=== PATIENT | female | born 1980 | race American Indian/Alaskan Native ===

== ENCOUNTER 2017-10-22 17:23 | Emergency (ER) | payer BC ==
[2017-10-22 17:23] VITALS: BMI 37.4
[2017-10-22 17:28] VITALS: PULSE 64; RESP 18; TEMP 98.5; O2SAT 98
--- NOTE | 2017-10-22 17:37 | ED PDOC ---
Arrival/HPI - General Chief Complaint: Upper Extremity Problem/Injury Time Seen by Provider: 10/22/17 17:31 Historian: Patient, Spouse - History of Present Illness Narrative History of Present Illness (Text): 10/22/17 17:37 This 37 yo female with pmh cervical slipped disc, presents to this ED c/o right shoulder pain x 7 days. Patient denies trauma, weakness, paresthesias, skin rash, neck pain, maldonado, or dizziness. Time/Duration: 1 week Quality: Aching Context: Home Past Medical History - Provider Review Nursing Documentation Reviewed: Yes - Tetanus Immunization Tetanus Immunization: Up to Date - Past Medical History Past Medical History: No Previous - Psychiatric Hx Depression: No Hx Emotional Abuse: No Hx Physical Abuse: No Hx Substance Use: No - Surgical History Hx Section: Yes - Suicidal Assessment Feels Threatened In Home Enviroment: No Family/Social History - Physician Review Nursing Documentation Reviewed: Yes Family/Social History: Other (noncontributory) Smoking Status: Light Smoker < 10 Cigarettes Daily Hx Alcohol Use: Yes Frequency of alcohol use: Socially Hx Substance Use: No Hx Substance Use Treatment: No Allergies/Home Meds Allergies/Adverse Reactions: Allergies No Known Allergies Allergy (Verified 10/22/17 17:27) Review of Systems - Review of Systems Constitutional: Normal. absent: Fatigue, Weight Change, Fevers, Night Sweats Eyes: Normal ENT: Normal Respiratory: Normal. absent: SOB, Cough, Sputum Cardiovascular: Normal. absent: Chest Pain, Palpitations Gastrointestinal: Normal. absent: Abdominal Pain, Nausea, Vomiting Genitourinary Female: Normal. absent: Dysuria, Frequency, Hematuria Musculoskeletal: Other (right shoulder pain) Skin: Normal Neurological: Normal Endocrine: Normal Hemo/Lymphatic: Normal Psychiatric: Normal Physical Exam Vital Signs Temp Pulse Resp BP Pulse Ox 10/22/17 17:25 98.5 F 64 18 123/78 98 10/22/17 17:23 98.5 F 64 18 123/78 98 Temperature: Afebrile Blood Pressure: Normal Pulse: Regular Respiratory Rate: Normal Appearance: Positive for: Well-Appearing, Non-Toxic, Comfortable Pain Distress: None Mental Status: Positive for: Alert and Oriented X 3 - Systems Exam Head: Present: Atraumatic, Normocephalic Pupils: Present: PERRL Extroacular Muscles: Present: EOMI Conjunctiva: Present: Normal Mouth: Present: Moist Mucous Membranes Neck: Present: Normal Range of Motion, Trachea Midline. No: Meningeal Signs, MIDLINE TENDERNESS, Paraspinal Tenderness, Lymphadenopathy Respiratory/Chest: Present: Clear to Auscultation, Good Air Exchange. No: Respiratory Distress, Accessory Muscle Use, Wheezes, Retracting, Rhonchi, Tender to Palpation Cardiovascular: Present: Regular Rate and Rhythm, Normal S1, S2. No: Murmurs Upper Extremity: Present: Normal Inspection, Normal ROM, NORMAL PULSES, Tenderness (mild tenderness right posterior shoulder), Neurovascularly Intact, Capillary Refill < 2s. No: Cyanosis, Edema Lower Extremity: Present: Normal Inspection, NORMAL PULSES, Normal ROM. No: Edema, CALF TENDERNESS Neurological: Present: GCS=15, CN II-XII Intact, Speech Normal, Motor Func Grossly Intact Skin: Present: Warm, Dry, Normal Color. No: Rashes Psychiatric: Present: Alert, Oriented x 3, Normal Insight, Normal Concentration Medical Decision Making ED Course and Treatment: 10/22/17 18:23 Re-evaluation. Patient feels better. Discussed results and plan with patient who expresses understanding. All questions answered and there is agreement with the plan to discharge home with instructions. Patient stable for discharge. Return if symptoms persist or worsen. Re-evaluation Time: 18:22 Reassessment Condition: Re-examined, Improved - RAD Interpretation Narrative RAD Interpretations (Text): 10/22/17 18:23 Shoulder x-rays: (+) calcific tendonitis. No Fx. or sublux. Radiology Orders: 10/22/17 17:42 SHOULDER RIGHT [RAD] Stat - Medication Orders Current Medication Orders: Discontinued Medications Diazepam (Valium) 5 mg PO ONCE ONE PRN Reason: Protocol Stop: 10/22/17 17:39 Last Admin: 10/22/17 18:05 Dose: 5 mg Ketorolac Tromethamine (Toradol) 30 mg IM STAT STA Stop: 10/22/17 17:39 Last Admin: 10/22/17 18:01 Dose: 30 mg PABLITO Pain Assessment Document 10/22/17 18:01 SRE (Rec: 10/22/17 18:05 SRE [id number]) Pain Reassessment Is this a pain reassessment? Yes Sleep Is patient sleeping during reassessment? No Presence of Pain Presence of Pain Yes Pain Scale Used Pain Scale Used Numeric Location Left, Right or Bilateral Right Pain Location Body Site Shoulder Description Description Intermittent IM Administration Charges Document 10/22/17 18:01 SRE (Rec: 10/22/17 18:05 SRE [id number]) Charges for Administration # of IM Administrations 1 Disposition/Present on Arrival - Present on Arrival Any Indicators Present on Arrival: No History of DVT/PE: No History of Uncontrolled Diabetes: No Urinary Catheter: No History of Decub. Ulcer: No History Surgical Site Infection Following: None - Disposition Have Diagnosis and Disposition been Completed?: Yes Diagnosis: Shoulder pain, right, Calcific tendonitis of right shoulder Disposition: HOME/ ROUTINE Disposition Time: 18:26 Patient Plan: Discharge Patient Problems: Current Active Problems Problem Status Onset Calcific tendonitis of right shoulder Acute Shoulder pain, right Acute Condition: GOOD Discharge Instructions (ExitCare): Calcific Tendinitis (ED) Additional Instructions: Call private doctor for follow up visit in 1-2 days. Take medication as instructed with food. return to emergency if symptoms worsen. Prescriptions: diaZEpam [Valium] 5 mg PO DAILY #6 tab Naproxen 500 mg PO BID PRN #14 tab PRN Reason: Pain, Severe (8-10) Referrals: Primary [employer] Brenda Req, [Primary Care Provider] - Follow up with primary [facility] [Outside] - Follow up with primary [facility] [Outside] - Follow up with primary Forms: [employer] (Greek), WORK NOTE
[2017-10-22 18:41] VITALS: BP 118/72
--- NOTE | 2017-10-23 08:13 | RAD ---
PROCEDURE: Radiographs of the Right Shoulder HISTORY: pain COMPARISON: No prior. FINDINGS: BONES: Normal. No fracture. JOINTS: Normal. Glenohumeral and acromioclavicular joints preserved. No osteoarthritis. SOFT TISSUES: Normal. OTHER FINDINGS: None. IMPRESSION: Normal radiographs of the right shoulder.
== END 2017-10-22 18:41 | disposition home or self-care (01) ==
LOC: ED 17:23
DX: M75.31 Calcific tendinitis of right shoulder (principal); F17.210 Nicotine dependence, cigarettes, uncomplicated; M25.511 Pain in right shoulder
CPT/HCPCS: 29240; 73030; 81025; 96372; 99284; J1885

== ENCOUNTER 2018-08-31 20:54 | Emergency (ER) | payer OTHER, BC ==
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
[2018-08-31 21:57] VITALS: BMI 36.5
[2018-08-31 23:35] VITALS: BP 122/82; PULSE 58; RESP 17; TEMP 98.2; O2SAT 100
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
== END 2018-08-31 23:35 | disposition home or self-care (01) ==
LOC: ED 20:54
DX: T14.8XXA Other injury of unspecified body region, initial encounter (principal); V79.9XXA Bus occupant (driver) (passenger) injured in unspecified traffic accident, initial encounter; F17.210 Nicotine dependence, cigarettes, uncomplicated

== ENCOUNTER 2018-11-13 18:35 | Emergency (ER) | payer BC, MEDICAID, OTHER ==
[2018-11-13 18:36] VITALS: BMI 37.4
[2018-11-13 19:13] VITALS: BP 147/77; PULSE 60; RESP 18; TEMP 98.4; O2SAT 99
--- NOTE | 2018-11-13 20:40 | ED PDOC ---
Arrival/HPI - General Chief Complaint: Cough, Cold, Congestion Time Seen by Provider: 11/13/18 19:45 Historian: Patient - History of Present Illness Narrative History of Present Illness (Text): 11/13/18 20:40 38 yo F reports 2 days of productive cough with chills and feeling fatigue without fever. Otherwise: (-) sore throat, (+) URI symptoms, (-) SOB, (-) chest pain, (-) N/V/D, (-) abdominal pain, (-) flank pain, (-) urinary symptoms, (-) recent travel, (-) sick contacts. Past Medical History - Infectious Disease Hx of Infectious Diseases: None - Tetanus Immunization Tetanus Immunization: Up to Date - Reproductive Menopause: No - Past Medical History Past Medical History: No Previous - Cardiac Hx Cardiac Disorders: No - Pulmonary Hx Respiratory Disorders: No - Neurological Hx Neurological Disorder: No - HEENT Hx HEENT Disorder: No - Renal Hx Renal Disorder: No - Endocrine/Metabolic Hx Endocrine Disorders: No - Hematological/Oncological Hx Blood Disorders: No - Integumentary Hx Dermatological Disorder: No - Musculoskeletal/Rheumatological Hx Musculoskeletal Disorders: No - Gastrointestinal Hx Gastrointestinal Disorders: No - Genitourinary/Gynecological Hx Genitourinary Disorders: No - Psychiatric Hx Depression: No Hx Emotional Abuse: No Hx Physical Abuse: No Hx Substance Use: No - Surgical History Hx Section: Yes - Anesthesia Hx Anesthesia: No - Suicidal Assessment Feels Threatened In Home Enviroment: No Family/Social History Family/Social History: No Known Family HX Smoking Status: Light Smoker < 10 Cigarettes Daily Hx Alcohol Use: Yes Hx Substance Use: No Hx Substance Use Treatment: No Allergies/Home Meds Allergies/Adverse Reactions: Allergies No Known Allergies Allergy (Verified 11/13/18 21:20) Review of Systems - Review of Systems Constitutional: Fatigue. absent: Fevers Respiratory: Cough, Sputum. absent: SOB, Wheezing Cardiovascular: absent: Chest Pain, Palpitations, Edema Gastrointestinal: absent: Abdominal Pain, Nausea, Vomiting Skin: absent: Rash, Skin Lesions Physical Exam Vital Signs Temp Pulse Resp BP Pulse Ox 11/13/18 18:50 98.4 F 60 18 147/77 99 Temperature: Afebrile Blood Pressure: Normal Pulse: Regular Respiratory Rate: Normal Appearance: Positive for: Well-Appearing, Non-Toxic, Comfortable Pain Distress: None Mental Status: Positive for: Alert and Oriented X 3 - Systems Exam Head: Present: Atraumatic, Normocephalic Pupils: Present: PERRL Extroacular Muscles: Present: EOMI Conjunctiva: Present: Normal Ears: Present: Normal, NORMAL TM Mouth: Present: Moist Mucous Membranes Pharnyx: Present: Normal. No: ERYTHEMA, EXUDATE Neck: Present: Normal Range of Motion. No: Meningeal Signs, Lymphadenopathy Respiratory/Chest: Present: Clear to Auscultation, Good Air Exchange. No: Respiratory Distress, Accessory Muscle Use Cardiovascular: Present: Regular Rate and Rhythm, Normal S1, S2. No: Murmurs Abdomen: No: Tenderness, Distention, Peritoneal Signs Back: Present: Normal Inspection Upper Extremity: Present: Normal Inspection. No: Cyanosis, Edema Lower Extremity: Present: Normal Inspection. No: Edema Neurological: Present: GCS=15, CN II-XII Intact, Speech Normal Skin: Present: Warm, Dry, Normal Color. No: Rashes Psychiatric: Present: Alert, Oriented x 3, Normal Insight, Normal Concentration Medical Decision Making ED Course and Treatment: 11/13/18 20:39 Diagnosis of likely viral illness d/w the patient. She is requesting antibiotics, rationale for not prescribing antibiotics was d/w the patient. Patient offered CXR, which she refuses. Advised to follow up with primary care physician in 1-2 days without fail. Advised to take medication as prescribed. Return to the emergency room at any time for any new or worsening symptoms. Patient states she fully agrees with and understands discharge instructions. States that she agrees with the plan and disposition. Verbalized and repeated discharge instructions and plan. I have given the patient opportunity to ask any additional questions. 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 Disposition/Present on Arrival - Present on Arrival Any Indicators Present on Arrival: No History of DVT/PE: No History of Uncontrolled Diabetes: No Urinary Catheter: No History of Decub. Ulcer: No History Surgical Site Infection Following: None - Disposition Have Diagnosis and Disposition been Completed?: Yes Diagnosis: Cough, Upper respiratory infection Disposition: HOME/ ROUTINE Disposition Time: 20:30 Patient Plan: Discharge Condition: STABLE Discharge Instructions (ExitCare): Viral Upper Respiratory Infection, Adult (DC), Cough, Adult (DC) Additional Instructions: Thank you for letting us take care of you today. You were treated for cough, URI. The emergency medical care you received today was directed at your acute symptoms. If you were prescribed any medication, please fill it and take as dire cted. It may take several days for your symptoms to resolve. Return to the Emergency Department if your symptoms worsen, do not improve, or if you have any other problems. Please contact your doctor in 2 days for re-evaluation and follow up. Bring any paperwork you were given at discharge with you along with any medications you are taking to your follow up visit. Our treatment cannot replace ongoing medical care by a primary care provider (PCP) outside of the emergency department. Thank you for allowing the [employer] team to be part of your care today. Prescriptions: Guaifenesin 400 mg PO QID #20 tablet Ibuprofen [Motrin Tab] 600 mg PO QID PRN #20 tab PRN Reason: Fever >100.4 F Oseltamivir Phosphate [Tamiflu] 75 mg PO BID #10 capsule Referrals: Bryon Draper MD [Primary Care Provider] - Follow up with primary Forms: [employer] (Lithuanian), WORK NOTE
== END 2018-11-13 22:00 | disposition home or self-care (01) ==
LOC: ED 18:35
DX: J06.9 Acute upper respiratory infection, unspecified (principal); R05 Cough; F17.210 Nicotine dependence, cigarettes, uncomplicated